=== PATIENT | male | born 1965 ===

== ENCOUNTER 2017-04-22 05:05 | Emergency (ER) | payer MEDICARE ==
[2017-04-22] MEDS ORDERED: NORCO 5/325 PO ONE (07:00)
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
[2017-04-22 11:08] VITALS: BP 100/64
== END 2017-04-22 11:00 | disposition home or self-care (01) ==
LOC: ED 05:05
DX: S46.911A Strain of unspecified muscle, fascia and tendon at shoulder and upper arm level, right arm, initial encounter (principal); X58.XXXA Exposure to other specified factors, initial encounter; Y93.9 Activity, unspecified; Y92.89 Other specified places as the place of occurrence of the external cause; Y99.9 Unspecified external cause status
CPT/HCPCS: 71250